=== PATIENT | male | born 1955 ===

== ENCOUNTER 2021-04-09 09:15 | Inpatient (IN) | payer OTHER ==
[~2021-04-09] VITALS: Ht 162.6 cm; Wt 86.2 kg
[2021-04-09] MEDS ORDERED: ATORVASTATIN CA20 MG PO (13:08)
[2021-04-09] MEDS ORDERED: GRALISE600 MG PO (13:08)
[2021-04-09] MEDS ORDERED: [UNRECOGNIZED DRUG - OTHER] PO (13:09)
[2021-04-14] MEDS ORDERED: LISINOPRIL5 MG (13:09)
[2021-04-14] MEDS ORDERED: FENOFIBRIC ACI135 MG (13:09)
[2021-04-14] MEDS ORDERED: OMEPRAZOLE40 MG (13:10)
[2021-04-14] MEDS ORDERED: LOSARTAN POTASS50 MG (13:10)
[2021-04-14] MEDS ORDERED: TRULICITY0.75 MG/0. (13:10)
[2021-04-14] MEDS ORDERED: FUSION PLUS CA1 EACH (13:10)
[2021-04-14] MEDS ORDERED: AMMONIUM LACTA385 GM (13:10)
[2021-04-14] MEDS ORDERED: SIMVASTATIN20 MG (13:10)
[2021-04-14] MEDS ORDERED: GLIPIZIDE5 MG (13:11)
[2021-04-17] MEDS ORDERED: HYOSCYAMINE0.125 M1 SL (11:23)
[2021-04-17] MEDS ORDERED: OXYC1TAB9 PO (11:24)
[2021-04-17] MEDS ORDERED: INTESTINEX680 M1 PO (11:24)
[2021-04-17] MEDS ORDERED: PANTOPRAZOLE SO40 MG PO (11:24)
== END 2021-04-17 15:06 | disposition home or self-care (01) | DRG 331 ==
LOC: O/R 04-14 07:01 → SURH 04-14 07:01
PROVIDERS: ADMIT Surgery; ATTEND Surgery
PROC: 0DBN4ZZ Excision of Sigmoid Colon, Percutaneous Endoscopic Approach (ICD-10-PCS; 2021-04-14)
PROC: 0DJD8ZZ Inspection of Lower Intestinal Tract, Via Natural or Artificial Opening Endoscopic (ICD-10-PCS; 2021-04-14)
PROC: 3E0F7SF Introduction of Other Gas into Respiratory Tract, Via Natural or Artificial Opening (ICD-10-PCS; 2021-04-14)
PROC: 0DBP4ZZ Excision of Rectum, Percutaneous Endoscopic Approach (ICD-10-PCS; principal; 2021-04-14 10:45)
DX: K57.20 Diverticulitis of large intestine with perforation and abscess without bleeding (principal); D50.0 Iron deficiency anemia secondary to blood loss (chronic); I11.9 Hypertensive heart disease without heart failure; E11.9 Type 2 diabetes mellitus without complications; Z79.4 Long term (current) use of insulin; E78.5 Hyperlipidemia, unspecified; E78.1 Pure hyperglyceridemia; F17.200 Nicotine dependence, unspecified, uncomplicated; E66.9 Obesity, unspecified